=== PATIENT | female | born 1975 | race Caucasian/White ===

== ENCOUNTER 2018-08-07 16:49 | Emergency (ER) | payer OTHER ==
[~2018-08-07] VITALS: Ht 177.8 cm; Wt 84.6 kg
[~2018-08-07 16:49] MED LIST: LEVE10007 PO; LEVO175T2 PO
[2018-08-07] MEDS ORDERED: LEVO200T PO (17:09)
[2018-08-07] MEDS ORDERED: ESCI10TA10 PO (17:09)
--- NOTE | 2018-08-07 17:10 | NUR ---
PT PRESENTING TO ER FOR DEPRESSION, SA AND ABRASION TO LEFT FOREARM. PT VERY TEARFUL DURING ASSESSMENT, STATES SHE HAS BEEN DEALING WITH HER DEPRESSION AND TAKING THE MEDS PRESCRIBED, TODAY WENT TO THERAPY AND SAYS THAT IS A TRIGGER FOR HER. NO PAST ATTEMPT, SUPPORT SYSTEM OF AND KIDS AT HOME. WHEN ASKED IF SHE FELT UNSAFE TO LEAVE, PT STATING SHE HAS NO PLAN TO HURT SELF AND REGRETS WHAT SHE DID ALREADY. PT CALM AND COOPERATIVE WITH REQUESTS. 2 BAGS OF BELONGINGS INTO LOCKER (CLOTHING, BACK PACK, CELL PHONE) UNDRESSED COMPLETELY, SITTER IN SOL FOR CONTINUOUS MONITORING. LABS HAVE BEEN DRAWN AND URINE COLLECTED. AWAITING RESULTS AND TELEPSYCH CONSULT AT THIS TIME.
[2018-08-07 17:27] LABS: BASOPHILS # (AUTO) 0.02 x10^3/uL (0-0.1); BASOPHILS % (AUTO) 0 % (0-1); EOSINOPHILS % (AUTO) 0 % (1-7); LYMPHOCYTES # (AUTO) 1.17 x10^3/uL (1-3.4); LYMPHOCYTES % (AUTO) 30 % (22-44); MD NO; MEAN CORPUSCULAR HEMOGLOBIN 31.1 pg (27.0-34.8); MEAN CORPUSCULAR HGB CONC 34.5 g/dL (32.4-35.8); MEAN CORPUSCULAR VOLUME 90.3 fL (80-100); MEAN PLATELET VOLUME 8.8 fL (7.4-10.4); MONOCYTES # (AUTO) 0.41 x10^3/uL (0.2-0.8); MONOCYTES % (AUTO) 11 % (2-9); NEUTROPHILS # (AUTO) 2.32 x10^3/uL (1.8-6.8); NEUTROPHILS % (AUTO) 59 % (42-75); PLATELET COUNT 158 x10^3/uL (130-400); RED BLOOD COUNT 4.68 x10^6/uL (3.82-5.3); RED CELL DISTRIBUTION WIDTH 13.9 % (9.6-15.2)
[2018-08-07 17:37] LABS: ALANINE AMINOTRANSFERASE 19 U/L (12-78); ALBUMIN 4.2 g/dL (3.4-5.0); ANION GAP 7 mmol/L (5-15); CALCIUM 8.6 mg/dL (8.5-10.1); CHLORIDE 114 mmol/L (98-107); CREATININE 0.83 mg/dL (0.55-1.02); SALICYLATE LEVEL 1.9 mg/dL (2.8-20.0)
--- NOTE | 2018-08-07 17:37 | NUR ---
PT , KRISTYN [phone], CONTACTED PER PT REQUEST, GIVEN PERMISSION TO SHARE POC.
[2018-08-07 17:41] LABS: ALKALINE PHOSPHATASE 64 U/L (45-117); BILIRUBIN,TOTAL 0.2 mg/dL (0.2-1.0); TOTAL PROTEIN 7.6 g/dL (6.4-8.2)
[2018-08-07 17:52] LABS: ACETAMINOPHEN < 2 mcg/mL (10-30)
[2018-08-07 18:11] LABS: AMPHETAMINE SCREEN, URINE Negative (Negative); BARBITURATE SCREEN, URINE Negative (Negative); BENZODIAZEPINE SCREEN, URINE Negative (Negative); CANNABINOID SCREEN, URINE Negative (Negative); COCAINE SCREEN, URINE Negative (Negative); METHADONE SCREEN, URINE Negative (Negative); OPIATE SCREEN, URINE Negative (Negative)
--- NOTE | 2018-08-07 19:16 | NUR ---
MD TO BEDSIDE TO ASSESS PT. AT BEDSIDE. SITTER IN SOL FOR CONTINUOUS MONITORING. AWAITING TELEPSYCH CONSULT AND DISPO
--- NOTE | 2018-08-07 19:56 | NUR ---
REPORT GIVEN TO SOC FOR TELEPSYCH, PT STILL TOO INTOXICATED FOR CONSULT AT THIS TIME. SITTER IN SOL FOR CONTINUOUS MONITORING.
--- NOTE | 2018-08-07 20:00 | NUR ---
ALL BELONGINGS GIVEN TO PER PT REQUEST. BOTH BAGS AND ALL PT CAME WITH SENT WITH KRISTYN ()
--- NOTE | 2018-08-07 22:03 | NUR ---
PT REBREATHALIZED CURRENTLY SOBER. ED MD TO BEDSIDE TO REASSESS PT. PT TO BE PLACED ON LEGAL HOLD FOR INPATIENT TREATMENT. PT RESTING IN BED AT THIS TIME, CURRENTLY NO NEEDS. SITTER IN SOL FOR CONTINUOUS MONITORING.
--- NOTE | 2018-08-07 22:16 | NUR ---
HOSPITALIST TO BEDSIDE FOR ASSESSMENT
--- NOTE | 2018-08-07 22:51 | NUR ---
PT PLACED ON HOSPITAL BED. ALL NEEDS MET AT THIS TIME. SITTER IN SOL FOR CONTINUOUS MONITORING
--- NOTE | 2018-08-07 23:28 | NUR ---
REPORT GIVEN TO BRETT FOSTER
--- NOTE | 2018-08-07 23:39 | NUR ---
PT ASLEEP SITTER AT BEDSIDE AND PT REMAINS ON A HOLD IN NO DISTRESS.
[2018-08-08] MEDS ORDERED: ACETAMINOPHEN 325 MG TABLET PO PRN (00:30)
--- NOTE | 2018-08-08 01:02 | NUR ---
PT ASLEEP SITTER AT BEDSIDE NO CHANGE IN STATUS
--- NOTE | 2018-08-08 03:57 | NUR ---
RECEIVED REPORT AND ASSUMED PT. CARE. PT. IS RESTING ON A HOSPITAL BED. ROOM SECURED. NO CONCERNS AT THIS TIME.
--- NOTE | 2018-08-08 04:28 | NUR ---
PT. IS RESTING WITHOUT CONCERNS. VSS. PT.'S HOB IS GREATER THAN 30 DEGREES. SIDERAILS ARE UP X 3.
[2018-08-08] MEDS ORDERED: LEVOTHYROXINE 200 MCG TABLET PO SCH (06:00)
--- NOTE | 2018-08-08 07:04 | NUR ---
REPORT RECEIVED FROM CRISTIAN COLVIN. ASSUMING PRIMARY CARE OF PT.
[2018-08-08] MEDS ORDERED: LORazepam 0.5MG TABLET PO PRN (07:30)
--- NOTE | 2018-08-08 07:42 | NUR ---
PACKET FAXED TO [facility], [facility] AND [facility]
--- NOTE | 2018-08-08 08:05 | NUR ---
REMIGOI SIMONS CALLED FOR UPDATE.
[2018-08-08 08:14] VITALS: BP 116/82
--- NOTE | 2018-08-08 08:15 | NUR ---
BREAKFAST WAS PROVIDED TO PT. PT DENIES SI AT THIS TIME. A&OX4. 11/06 CLAUDIO. AWAITING MEDICATIONS FROM PHARMACY. RN TO ADMINISTER TYLENOL FOR CLAUDIO. REPORT TO RN AT [facility]. PT TB TRANSPORTED TO FACILITY TODAY.
[2018-08-08] MEDS ORDERED: ACETAMINOPHEN 325 MG TABLET ONE (08:23)
--- NOTE | 2018-08-08 08:28 | NUR ---
PT UPDATED ON POC.
--- NOTE | 2018-08-08 08:38 | NUR ---
[facility] NOTIFIED OF APPROX 929 ETA
--- NOTE | 2018-08-08 08:49 | NUR ---
KRISTYN FLOOD UPDATED ON POC.
[2018-08-08] MEDS ORDERED: LAMOTRIGINE 100 MG TABLET PO SCH (09:00)
[2018-08-08] MEDS ORDERED: THIAMINE 100MG TABLET PO SCH (09:00)
[2018-08-08] MEDS ORDERED: ESCITALOPRAM 10MG TABLET PO SCH (09:00)
[2018-08-08] MEDS ORDERED: FOLIC ACID 1 MG TABLET PO SCH (09:00)
--- NOTE | 2018-08-08 09:13 | NUR ---
REPORT TO PEDRO PABLO. PT TRANSPORTED TO [facility].
== END 2018-08-08 09:15 ==
LOC: ED 19:08 → EDIP 22:13 → UNDOADMOB 22:13 → ED 08-08 09:15
DX: S51.812A Laceration without foreign body of left forearm, initial encounter (principal); T14.91XA Suicide attempt, initial encounter; F10.220 Alcohol dependence with intoxication, uncomplicated; F32.9 Major depressive disorder, single episode, unspecified; G40.909 Epilepsy, unspecified, not intractable, without status epilepticus; X78.8XXA Intentional self-harm by other sharp object, initial encounter; Y93.89 Activity, other specified; Y92.89 Other specified places as the place of occurrence of the external cause; Y99.8 Other external cause status; Y90.9 Presence of alcohol in blood, level not specified
CPT/HCPCS: 36415; 80053; 80307; 80329; 84703; 85025; 99285; G0480

== ENCOUNTER 2018-09-29 18:41 | Emergency (ER) | payer OTHER ==
[~2018-09-29] VITALS: Ht 177.8 cm; Wt 80.0 kg
[~2018-09-29 18:41] MED LIST changes: +ESCI10TA10 PO; +LEVO200T PO
[2018-09-29 18:47] VITALS: BP 135/85
--- NOTE | 2018-09-29 18:50 | NUR ---
LEFT FOREARM LACERATION OPEN. EMS STATES THIS IS A SELF INFLICTED LACERATION FROM 2 MONTHS AGO. NO SIGNS OF BLEEDING
--- NOTE | 2018-09-29 19:23 | NUR ---
REPORT TO CLANCY. WHITMAN AT BS.
[2018-09-29] MEDS ORDERED: LORazepam 1MG TABLET PO ONE (19:30)
[2018-09-29] MEDS ORDERED: CEPHALEXIN 500 MG CAPSULE PO ONE (19:30)
--- NOTE | 2018-09-29 19:33 | NUR ---
Pt picking at wound. Wound bleeding. PA aware. Pt refused meds by RN. Agreed to take with PA.
[2018-09-29 19:39] LABS: BASOPHILS # (AUTO) 0.02 x10^3/uL (0-0.1); BASOPHILS % (AUTO) 0 % (0-1); EOSINOPHILS # (AUTO) 0.01 x10^3/uL (0-0.4); EOSINOPHILS % (AUTO) 0 % (1-7); LYMPHOCYTES # (AUTO) 1.48 x10^3/uL (1-3.4); LYMPHOCYTES % (AUTO) 23 % (22-44); MD NO; MEAN CORPUSCULAR HEMOGLOBIN 30.8 pg (27.0-34.8); MEAN CORPUSCULAR HGB CONC 33.8 g/dL (32.4-35.8); MEAN CORPUSCULAR VOLUME 91.1 fL (80-100); MEAN PLATELET VOLUME 8.6 fL (7.4-10.4); MONOCYTES # (AUTO) 0.39 x10^3/uL (0.2-0.8); MONOCYTES % (AUTO) 6 % (2-9); NEUTROPHILS # (AUTO) 4.53 x10^3/uL (1.8-6.8); NEUTROPHILS % (AUTO) 71 % (42-75); PLATELET COUNT 185 x10^3/uL (130-400); RED BLOOD COUNT 4.78 x10^6/uL (3.82-5.3); RED CELL DISTRIBUTION WIDTH 13.4 % (9.6-15.2)
[2018-09-29] MEDS ORDERED: CEPHALEXIN 500 MG CAPSULE ONE (19:39)
[2018-09-29] MEDS ORDERED: LORazepam 1MG TABLET ONE (19:40)
[2018-09-29 19:47] LABS: ALANINE AMINOTRANSFERASE 22 U/L (12-78); ALBUMIN 4.2 g/dL (3.4-5.0); ANION GAP 9 mmol/L (5-15); CALCIUM 8.7 mg/dL (8.5-10.1); CHLORIDE 116 mmol/L (98-107); CREATININE 0.75 mg/dL (0.55-1.02)
[2018-09-29 19:49] LABS: SALICYLATE LEVEL < 1.7 mg/dL (2.8-20.0)
[2018-09-29 19:52] LABS: ALKALINE PHOSPHATASE 54 U/L (45-117); BILIRUBIN,TOTAL 0.2 mg/dL (0.2-1.0); TOTAL PROTEIN 7.3 g/dL (6.4-8.2)
[2018-09-29 19:54] LABS: ACETAMINOPHEN < 2 mcg/mL (10-30)
[2018-09-29] MEDS ORDERED: BACITRACIN ZINC OINT 500U/GM, 0.9 GM ONE (19:54)
[2018-09-29 19:59] LABS: MICROSCOPIC NOT IND
--- NOTE | 2018-09-29 20:06 | NUR ---
PA at bedside assessing wound.
[2018-09-29 20:10] LABS: AMPHETAMINE SCREEN, URINE Negative (Negative); BARBITURATE SCREEN, URINE Negative (Negative); BENZODIAZEPINE SCREEN, URINE Negative (Negative); CANNABINOID SCREEN, URINE Negative (Negative); COCAINE SCREEN, URINE Negative (Negative); CULTURE INDICATED? NO; METHADONE SCREEN, URINE Negative (Negative); OPIATE SCREEN, URINE Negative (Negative)
--- NOTE | 2018-09-29 22:09 | NUR ---
Per SOC, pt can be dc'd
--- NOTE | 2018-09-29 22:44 | NUR ---
Pt has plan for care in place with sister. Pt dc with all belongings. Verbalized understanding of dc instructions and follow-ups. Resources for substance abuse given.
== END 2018-09-29 22:55 | disposition home or self-care (01) ==
LOC: ED 19:08
DX: F33.9 Major depressive disorder, recurrent, unspecified (principal); S51.812A Laceration without foreign body of left forearm, initial encounter; F31.9 Bipolar disorder, unspecified; L03.114 Cellulitis of left upper limb; F10.120 Alcohol abuse with intoxication, uncomplicated; X78.1XXA Intentional self-harm by knife, initial encounter; Y93.89 Activity, other specified; Y92.89 Other specified places as the place of occurrence of the external cause; Y99.8 Other external cause status
CPT/HCPCS: 36415; 80053; 80307; 80329; 81003; 84703; 85025; 99284; G0480

== ENCOUNTER 2020-08-08 12:24 | Outpatient (CLI) | payer OTHER | END 2020-08-08 23:59 | disposition home or self-care (01) | LOC: CFH 12:24 | PROVIDERS: ATTEND Family Medicine | DX: Z12.31 Encounter for screening mammogram for malignant neoplasm of breast (principal); N63.10 Unspecified lump in the right breast, unspecified quadrant | CPT/HCPCS: 77063; 77067 ==

== ENCOUNTER → 2020-09-01 | Outpatient (CLI) | payer OTHER | END | disposition home or self-care (01) | LOC: CFH 07:33 | PROVIDERS: ATTEND Family Medicine | DX: N63.11 Unspecified lump in the right breast, upper outer quadrant (principal); N60.01 Solitary cyst of right breast; R92.2 Inconclusive mammogram | CPT/HCPCS: 76642; 77065 ==

== ENCOUNTER 2020-09-11 07:46 | Outpatient (CLI) | payer OTHER ==
[2020-09-11] MEDS ORDERED: LIDOCAINE 1%, 20ML ONE (08:00)
[2020-09-11] MEDS ORDERED: LIDOCAINE 1%-EPI 1:100K, 20ML ONE (08:00)
[2020-09-11] MEDS ORDERED: SODIUM BICARBONATE 4.2%, 5ML ONE (08:00)
== END 2020-09-11 23:59 | disposition home or self-care (01) ==
LOC: CFH 07:46
PROVIDERS: ATTEND Family Medicine
DX: N63.11 Unspecified lump in the right breast, upper outer quadrant (principal); D24.1 Benign neoplasm of right breast
CPT/HCPCS: 19083; 77065; 88305; J3490